=== PATIENT | male | born 1955 ===

== ENCOUNTER → 2018-05-25 21:12 | Outpatient (REF) | payer OTHER, SELFPAY ==
[2018-05-25 22:23] LABS: Add Manual Diff / Slide Review NO; Basophils Percent Auto 0.4 % (0-2); Eosinophils Percent Auto 3.9 % (2-4); Hematocrit 42.8 % (41-53); Hemoglobin 14.7 g/dL (13.5-17.5); Lymphocytes Percent Auto 22.3 % (25-40); Mean Corpuscular HGB Conc 34.4 % (30-36); Mean Corpuscular Hemoglobin 28.4 PG (26-34); Mean Corpuscular Volume 82.6 fL (80-100); Monocytes Percent Auto 7.3 % (3-14); Neutrophils Absolute Auto 4500 /uL (3000-5900); Neutrophils Percent Auto 66.1 % (50-75); Platelet Count 189 X10^3/uL (150-400); Red Blood Cell Count 5.18 X10^6/uL (4.5-5.9); Red Cell Distribution Width 13.1 % (11.6-14.8); White Blood Cell Count 6.7 X10^3/uL (4.5-11.0)
[2018-05-28 15:47] LABS: Estradiol 31 pg/mL (< 40)
[2018-05-28 18:29] LABS: Sex Hormone Binding Globulin 44 nmol/L (22-77)
[2018-05-29 14:36] LABS: PSA Total < 0.10 ng/mL (< 4.01)
[2018-06-01 21:04] LABS: Testosterone Free 81.3 pg/mL (35.0-155.0); Testosterone Total 504 ng/dL (250-1100)
== END ==
LOC: LAB 21:12
PROVIDERS: Visit Provider Physician Assistant
DX: E29.1 Testicular hypofunction (principal)
CPT/HCPCS: 82670; 84153; 84154; 84270; 84402; 84403; 85025

== ENCOUNTER → 2018-09-16 21:01 | Outpatient (REF) | payer OTHER, SELFPAY ==
[2018-09-16 21:28] LABS: Add Manual Diff / Slide Review NO; Basophils Absolute Auto 0 /uL (0-100); Basophils Percent Auto 1.2 % (0-2); Eosinophils Absolute Auto 100 /uL (0-450); Hematocrit 45.9 % (41-53); Hemoglobin 15.7 g/dL (13.5-17.5); Lymphocytes Absolute Auto 1200 /uL (1100-4500); Lymphocytes Percent Auto 32.3 % (25-40); Mean Corpuscular HGB Conc 34.1 % (30-36); Mean Corpuscular Hemoglobin 28.2 PG (26-34); Mean Corpuscular Volume 82.5 fL (80-100); Monocytes Absolute Auto 300 /uL (0-900); Neutrophils Absolute Auto 2000 /uL (1500-7000); Neutrophils Percent Auto 53.5 % (50-75); Platelet Count 171 X10^3/uL (150-400); Red Blood Cell Count 5.57 X10^6/uL (4.5-5.9); Red Cell Distribution Width 13.2 % (11.6-14.8); White Blood Cell Count 3.7 X10^3/uL (4.5-11.0)
[2018-09-16 21:29] LABS: Alanine Aminotransferase 33 IU/L (21-72); Albumin 4.4 g/dL (3.5-5.0); Albumin Globulin Ratio 1.9 (1.0-2.8); Alkaline Phosphatase 47 U/L (38-126); Aspartate Aminotransferase 31 IU/L (17-59); Bilirubin Total 0.9 mg/dL (0.2-1.3); Blood Urea Nitrogen 19 mg/dL (9-20); Calcium 9.6 mg/dL (8.4-10.2); Carbon Dioxide 31 mmol/L (22-32); Chloride 99 mmol/L (98-107); Estimated Glomerular Filt Rate > 60.0 mL/min (>60); Globulin 2.3 g/dL (1.7-4.1); Glucose 76 mg/dL (80-110); HEMOLYSIS < 15 (0-50); Potassium 4.3 mmol/L (3.4-5.1); Sodium 138 mmol/L (137-145); Total Protein 6.7 g/dL (6.3-8.2)
[2018-09-19 15:47] LABS: PSA Total < 0.10 ng/mL (< 4.01)
[2018-09-19 17:49] LABS: Estradiol 26 pg/mL (< 40)
== END ==
LOC: LAB 21:01
PROVIDERS: Visit Provider Physician Assistant
DX: E29.1 Testicular hypofunction (principal); E34.9 Endocrine disorder, unspecified; I10 Essential (primary) hypertension; F11.10 Opioid abuse, uncomplicated; K74.0 Hepatic fibrosis
CPT/HCPCS: 36415; 80053; 82670; 84153; 84154; 84402; 84403; 85025